=== PATIENT | female | born 1985 | race Caucasian/White ===

== ENCOUNTER → 2017-07-13 | Outpatient (CLI) | payer OTHER ==
[~2017-07-13] MED LIST: AC500T PO; ACHYD1T PO; DOCO200C2 PO; DOCU100C37 PO; FAMO20TA5 PO; FERR-74 PO; HYDR-3816 PO; IBP800T PO; IBUP-1780 PO; L.AC1CAP6 PO; OMG1KC PO; PREN-115 PO; PREN1TAB71 PO
--- NOTE | 2017-07-13 11:40 | Diagnostic Imaging Report ---
INDICATION: Gestational diabetes. TECHNIQUE: Multiple real-time grayscale images were obtained over the gravid uterus. FINDINGS: There is a single living intrauterine . The biometry correlates with a gestational age of 25 weeks 0 days. The fetus is in transverse presentation. There is a normal volume or amniotic fluid. The placenta is to the right. No evidence of previa. The anatomical survey is unremarkable. Heart rate is 140 beats per minute and regular. The spine was not optimally visualized due to lie. IMPRESSION: Single living intrauterine with sonographically estimated gestational age of 25 weeks 0 days and estimated date of confinement of 10/26/2017. Biometrical measurements are as follows: Biparietal 6.29 cm, age 25 weeks 4 days. Head circumference 22.73 cm, age 24 weeks 6 days. Abdominal circumference 19.53 cm, age 24 weeks 2 days. Femur length 4.60 cm, age 25 weeks 2 days. Sonographic estimate age: 25 weeks 0 days. Sonographic estimated date of delivery: 10-26-17. Estimated Weight: 727 gm (+/- 106 gm). LMP percentile: 61%. heart rate: 140 beats per minute. number: 1 of 1. Dictated by: Dictated on workstation # [id number]
== END ==
LOC: RAD 09:56
PROVIDERS: ATTEND Obstetrics & Gynecology
DX: O24.414 Gestational diabetes mellitus in pregnancy, insulin controlled (principal); Z3A.25 25 weeks gestation of pregnancy
CPT/HCPCS: 76805

== ENCOUNTER → 2017-10-14 | Outpatient (CLI) | payer OTHER ==
[~2017-10-14] MED LIST changes: -FERR-74 PO; +FERR325T18 PO; +HYDR-34 PO; -HYDR-3816 PO
--- NOTE | 2017-10-14 13:09 | Diagnostic Imaging Report ---
INDICATION: Gestational diabetes. FINDINGS: There is a single live fetus in a cephalic presentation. heart rate was recorded at 169 beats per minute. The amniotic fluid index is 10.3 cm. The placenta is to the right. Biophysical profile was performed. Overall score is 6/8 with 2-point deduction given for lack of breathing movements. IMPRESSION: Biophysical profile score of 6/8, as described. Dictated by: Dictated on workstation # [id number]
== END ==
LOC: RAD 11:20
PROVIDERS: ATTEND Obstetrics & Gynecology
DX: O24.424 Gestational diabetes mellitus in childbirth, insulin controlled (principal); O34.219 Maternal care for unspecified type scar from previous cesarean delivery; Z3A.00 Weeks of gestation of pregnancy not specified
CPT/HCPCS: 76819

== ENCOUNTER 2017-10-23 23:33 | Inpatient (IN) | payer OTHER ==
[~2017-10-23] VITALS: Ht 162.6 cm; Wt 89.9 kg
[2017-10-23 23:50] VITALS: BP 108/59
[2017-10-24] VITALS (10 sets, daily range): BP systolic 93–137; BP diastolic 58–82
[2017-10-24] MEDS ORDERED: LACTATED RINGERS 1,000 ML IV ONE (00:30)
[2017-10-24] MEDS ORDERED: SUFENTA 0.6MCG/ML BUPIVA 0.125 0 ML ONE (00:36)
[2017-10-24 00:56] LABS: BASOPHILS % (AUTO) 0 % (0-10); EOSINOPHILS % (AUTO) 0 % (0-10); HEMATOCRIT 35 % (35-52); HEMOGLOBIN 11.9 G/DL (11.5-16.0); LYMPHOCYTES # (AUTO) 1.2 X 10^3 (1.0-4.0); LYMPHOCYTES % (AUTO) 10 % (12-44); MEAN CORPUSCULAR HEMOGLOBIN 30 PG (25-34); MEAN CORPUSCULAR HGB CONC 34 G/DL (32-36); MEAN CORPUSCULAR VOLUME 88 FL (80-99); MEAN PLATELET VOLUME 12.1 FL (7.4-10.4); MONOCYTES # (AUTO) 1.3 X 10^3 (0.0-1.0); MONOCYTES % (AUTO) 11 % (0-12); NEUTROPHILS # (AUTO) 9.6 X 10^3 (1.8-7.8); NEUTROPHILS % (AUTO) 79 % (42-75); PLATELET COUNT 162 10^3/uL (130-400); RED BLOOD COUNT 4.01 10^6/uL (4.35-5.85); RED CELL DISTRIBUTION WIDTH 13.7 % (10.0-14.5); WHITE BLOOD COUNT 12.1 10^3/uL (4.3-11.0)
[2017-10-24] MEDS ORDERED: LIDOCAINE PF 2% 5 ML (XYLOCAINE) VIAL ONE (00:56)
[2017-10-24] MEDS ORDERED: BUPIVACAINE 0.25% 30 ML (SENSORCAINE) VIAL ONE (00:56)
[2017-10-24] MEDS ORDERED: fentaNYL INJECTION 100 MCG/2 ML AMP ONE (00:57)
[2017-10-24] MEDS ORDERED: OXYTOCIN/NORMAL SALINE 500 ML IV ONE (01:04)
[2017-10-24] MEDS ORDERED: HYDROmorphone (DILAUDID) 2 MG/ML VIAL ONE (01:07)
[2017-10-24] MEDS ORDERED: LIDOCAINE/EPI 2% 1:200,00 (XYLOCAINE) 10 ML VIAL ONE (01:07)
[2017-10-24] MEDS ORDERED: D5 LR IV SOLUTION 1,000 ML IV SCH (01:36)
[2017-10-24] MEDS ORDERED: HYDROmorphone (DILAUDID) 2 MG/ML VIAL IVP PRN (01:45)
[2017-10-24] MEDS ORDERED: OXYTOCIN/NORMAL SALINE 500 ML IV SCH (01:51)
[2017-10-24] MEDS ORDERED: BENZOCAINE/MENTHOL (DERMOPLAST) 56 ML CAN TP PRN (02:00)
[2017-10-24] MEDS ORDERED: MEASLES,MUMPS,RUBELLA 1 EA INJ SQ ONE (02:00)
[2017-10-24] MEDS ORDERED: DIBUCAINE (NUPERCAINAL) 1% OINT 30 GM TOP PRN (02:00)
[2017-10-24] MEDS ORDERED: TETANUS,DIPTH,PERTUSS P/F (BOOSTRIX) 0.5 ML VIAL IM ONE (02:00)
[2017-10-24] MEDS ORDERED: WITCH HAZEL(TUCKS) 40 EA JAR TOP PRN (02:00)
--- NOTE | 2017-10-24 02:00 | History & Physical-OB ---
OB - Chief Complaint & HPI Date/Time Date of Admission: Date of Admission: Oct 24, 2017 at 00:26 Time Seen by Provider: 12:40 Chief Complaint/History OB-Reason for Admission/Chief: Onset of Labor Hx : 3 Hx Para: 2 Expected Date of Delivery: Oct 31, 2017 Gestational Age in Weeks: 39 Gestational Age in Days: 0 Admission Nurse Assessment Rev: Yes History of Labs O pos Antibody neg RI RPR NR HBsAg NR HIV NR GC neg GBS neg Allergies and Home Medications Allergies Coded Allergies: No Known Drug Allergies (Unverified , 02/19/13) Home Medications Docusate Sodium 100 Mg Capsule, 100 MG PO BID Prescribed by: MAYA GA on 03/14/16 1257 Ferrous Sulfate 325 Mg Tablet, 325 MG PO BID WITH MEALS Prescribed by: MAYA GA on 03/14/16 1257 Hydrocodone Bit/Acetaminophen 1 Each Tablet, 0 EA PO Q4H PRN for PAIN Prescribed by: MAYA GA on 03/14/16 1257 Ibuprofen 800 Mg Tablet, 800 MG PO Q6HR Prescribed by: MAYA GA on 03/14/16 1257 L.acidoph & Paracasei,B.lactis 1 Each Capsule, 1 EACH PO DAILY, (Reported) [place] 3 Polyunsat Fatty Acids 1,000 Mg Cap, 1,000 MG PO DAILY, (Reported) Vit/Iron Fumarate/FA 1 Each Tablet, 1 EACH PO DAILY, (Reported) Patient Home Medication List Home Medication List Reviewed: Yes OB - History Hx of Present Care: Yes Ultrasounds: Normal mid trimester US Obstetrical Complications: Gestational Diabetes (GDMA2 with intermittant control) Medical Complications: None Obstetrical History Hx Termination: No Hx Multiple Gestation: No Hx Stillbirth: No Hx Complication: No Hx Induced Hypertens: No Hx Maternal Gestational Diabet: No Delivery History Hx Dystocia: No Hx Large For Gestational Age I: No Hx Small for Gestational Age I: No Hx Section: No Hx Vaginal Delivery Post C-Sec: No Hx Blood Disorders: No Adverse Rxn to Tranfusion: No Patient Past Medical History see above Social History/Family History HIV/AIDS: No Recent Infectious Disease Expo: No Sexually Transmitted Disease: No 2nd Hand Smoke Exposure: No Immunizations Hepatitis A: Yes Hepatitis B: Yes Tetanus Booster (TDap): Less than 5yrs OB - Admission Exam Physical Exam Vitals: Vital Signs 10/23/17 23:50 Temp 99.4 Pulse 73 Resp 20 B/P (MAP) 108/59 (75) HEENT: NCAT Heart: Rhythm Normal Lungs: Clear Abdomen: Gravid Extremities: Normal Reflexes: Normal Cervical Dilatation: 4cm Effacement: 100% Station: -1 Membranes: Ruptured Amniotic Fluid: Clear Heart Rate: 130's Accelerations: Accelerations Present Decelerations: No Decelerations Short Term Variability: Present Retirement Variability: Average (6-25) Contractions on Admission: < 5 Minutes Apart Intensity: Firm Labs Laboratory Tests Test 10/24/17 00:35 10/24/17 00:56 Range/Units White Blood Count 12.1 H 4.3-11.0 10^3/uL Red Blood Count 4.01 L 4.35-5.85 10^6/uL Hemoglobin 11.9 11.5-16.0 G/DL Hematocrit 35 35-52 % Mean Corpuscular Volume 88 80-99 FL Mean Corpuscular Hemoglobin 30 25-34 PG Mean Corpuscular Hemoglobin Concent 34 32-36 G/DL Red Cell Distribution Width 13.7 10.0-14.5 % Platelet Count 162 130-400 10^3/uL Mean Platelet Volume 12.1 H 7.4-10.4 FL Neutrophils (%) (Auto) 79 H 42-75 % Lymphocytes (%) (Auto) 10 L 12-44 % Monocytes (%) (Auto) 11 0-12 % Eosinophils (%) (Auto) 0 0-10 % Basophils (%) (Auto) 0 0-10 % Neutrophils # (Auto) 9.6 H 1.8-7.8 X 10^3 Lymphocytes # (Auto) 1.2 1.0-4.0 X 10^3 Monocytes # (Auto) 1.3 H 0.0-1.0 X 10^3 Eosinophils # (Auto) 0.0 0.0-0.3 10^3/uL Basophils # (Auto) 0.0 0.0-0.1 10^3/uL Glucometer 91 70-110 MG/DL OB - Assessment/Plan/Diagnosis Assessment Assessment: active labor Admission Dx 32 yo @ 39 weeks Active labor Desires GDMA2- intermittent control on insulin, and some diet control GBS neg Admission Status: Inpatient Order (span 2 midnights) Reason for Inpatient Admission: 32 yo @ 39 weeks Active labor Desires GDMA2- intermittent control on insulin, and some diet control GBS neg Plan Plan: Expectant Management MANDEEP BETH DO Oct 24, 2017 02:00
--- NOTE | 2017-10-24 02:06 | OB Labor & Delivery Record ---
L&D History Date of Service Date of Service: Oct 24, 2017 History Expected Date of Delivery: Oct 31, 2017 Gestational Age in Weeks: 39 Hx : 3 Hx Para: 2 Complications Events: Gestational Diabetes Operative Indications (Cesarea: N/A-Vaginal Delivery Intrapartal Events: Precipitous Labor < 3 hrs L&D Stage1 Stage One Onset of Labor - Date: Oct 24, 2017 Monitors and Tracing Monitor Mode: External Monitor Accelerations: Uniform Monitor Decelerations: None Station: -2 Operating Room Surgical Technician Variability: Average (6-10) Short Term Variability: Present Presentation: Vertex Vital Signs VS - Last 72 Hours, by Label 10/23/17 23:50 Temp 99.4 Pulse 73 Resp 20 B/P (MAP) 108/59 (75) Rupture of Membranes Spontaneous Ruture of Membrane: Yes Amniotic Membrane Rupture Time: 12:45 Amniotic Membrane Fluid Desc.: Clear Vaginal Bleeding Description: Normal Show L&D Stage2 Stage Two Stage II Date: Oct 24, 2017 Monitors and Tracing Monitor Mode: External Monitor Accelerations: Uniform Monitor Decelerations: None Operating Room Surgical Technician Variability: Average (6-10) Short Term Variability: Present Position: Right Occiput Anterior Presentation: Vertex Cord Descript/Complications Cord Vessel Description: 3 Vessels Complications nuchal reduced x 1 Delivery Type Infant Delivery Method: Spontaneous Vaginal Anterior Shoulder: Right Episiotomy/Perineal Laceration Laceraction(s)/Extensions: Yes Episiotomy Description: 2nd degree Degree (describe repair) right labial and 2nd degree vaginal/perineal repaired using 3-0 rapide suture Condition of Delivery 1 minute Comment: 9 5 minute Comment: 9 Notes live male infant weight 6lbs 10 oz Condition of Condition of : Living Exam: No Observed Abnormalities Resuscitation Resuscitation: N/A - Spontaneous Resp L&D Stage3 Stage Three Stage III Date: Oct 24, 2017 Pictocin Pitocin Administration Comment: 30 mu wide open at delivery of placenta Placenta Delivery Placenta Delivery: Spontaneous Delivery Summary Summary Estimated blood loss (mL): 300 300 Condition of Delivery Examined: Cervix Examined, Uterus Explored Post Hemorrhage: No Condition of Mother stable Condition of Infant (s) stable ERICKMANDEEP CALLAHAN Oct 24, 2017 02:06
--- NOTE | 2017-10-24 02:07 | Discharge Inst-Women's Service ---
Discharge Inst-Women's Serv Depart Medication/Instructions New, Converted or Re-Newed RX: RX on Chart Consults/Follow Up Additional Follow Up: Yes Orders/Referrals Dr. Beth in 6 weeks Activity Activity: Activity as Tolerated Driving Instructions: No Driving for 1 Week NO SMOKING: NO SMOKING Nothing Inside Vagina: No Douching, No [place], No Tampons Diet Discharge Diet: No Restrictions Symptoms to Report to : Bleeding Excessive, Pain Increased, Fever Over 101 Degrees F, Vaginal Bleeding Increase, Questions/Concerns For Any Problems or Questions: Contact Your Physician Skin/Wound Care Bathing Instructions: Shower (or sitz baths x 2 weeks) MANDEEP BETH DO Oct 24, 2017 02:07
[2017-10-24] MEDS ORDERED: DOCU100C37 PO (02:08)
[2017-10-24] MEDS ORDERED: ACHD5005 PO (02:08)
[2017-10-24] MEDS ORDERED: Benzocaine/Menthol TP (02:08)
[2017-10-24] MEDS ORDERED: IBUP-844 PO (02:08)
[2017-10-24] MEDS: IBUPROFEN 600 MG (MOTRIN) TAB PO SCH ×4 (03:25→20:15)
[2017-10-24] MEDS ORDERED: CATHETER FLUSH 10 ML SYR IV SCH ×2 (06:00)
[2017-10-24] MEDS ORDERED: PRENATAL VITAMIN 1 EA TAB PO SCH (07:00)
[2017-10-24] MEDS: DOCUSATE SODIUM 100 MG (COLACE) CAP PO SCH ×2 (09:00→20:15)
[2017-10-24] MEDS ORDERED: FERROUS SULF 325 MG (IRON) TAB PO SCH (09:00)
[2017-10-24] MEDS: HYDROcodone/APAP 5 MG/325 MG (LORTAB) TAB PO PRN (13:21)
[2017-10-25 00:20] VITALS: BP 89/55
[2017-10-25] MEDS: HYDROcodone/APAP 5 MG/325 MG (LORTAB) TAB PO PRN ×2 (01:42→09:31)
[2017-10-25] MEDS: IBUPROFEN 600 MG (MOTRIN) TAB PO SCH (01:45)
[2017-10-25 05:45] VITALS: BP 92/61
[2017-10-25 06:22] LABS: BASOPHILS % (AUTO) 0 % (0-10); EOSINOPHILS # (AUTO) 0.1 10^3/uL (0.0-0.3); EOSINOPHILS % (AUTO) 1 % (0-10); HEMATOCRIT 27 % (35-52); HEMOGLOBIN 8.6 G/DL (11.5-16.0); LYMPHOCYTES # (AUTO) 2.1 X 10^3 (1.0-4.0); LYMPHOCYTES % (AUTO) 30 % (12-44); MEAN CORPUSCULAR HGB CONC 33 G/DL (32-36); MEAN CORPUSCULAR VOLUME 91 FL (80-99); MEAN PLATELET VOLUME 11.9 FL (7.4-10.4); MONOCYTES # (AUTO) 0.7 X 10^3 (0.0-1.0); MONOCYTES % (AUTO) 11 % (0-12); NEUTROPHILS # (AUTO) 4.1 X 10^3 (1.8-7.8); NEUTROPHILS % (AUTO) 58 % (42-75); PLATELET COUNT 137 10^3/uL (130-400); RED BLOOD COUNT 2.92 10^6/uL (4.35-5.85)
[2017-10-25 06:28] LABS: MEAN CORPUSCULAR HEMOGLOBIN 29 PG (25-34)
[2017-10-25] MEDS ORDERED: FERR325T18 PO (08:37)
--- NOTE | 2017-10-25 08:39 | Postpartum Progress Note ---
Note Note Day # 1 Subjective: Patient is without complaints. Ambulating, voiding. Tolerating a regular diet without nausea or vomiting. Normal lochia. Pain is well controlled with oral pain medications. . Objective: Vital Sign - Last 24 Hours 10/24/17 10/24/17 10/24/17 10/25/17 12:30 17:00 20:15 00:20 Temp 98.9 98.4 99.8 98.3 Pulse 92 92 96 92 Resp 18 18 18 18 B/P (MAP) 101/67 (78) 93/59 (70) 96/58 (71) 89/55 (66) Pulse Ox 98 98 98 98 O2 Delivery Room Air Room Air Room Air Room Air 10/25/17 05:45 Temp 98.7 Pulse 76 Resp 18 B/P (MAP) 92/61 (71) Pulse Ox 98 O2 Delivery Room Air Physical Exam: General - Alert and oriented, no apparent distress Abdomen - Soft, appropriately tender to palpation, non-distended, fundus firm at umbilicus Extremities - no edema, negative Ana's bilaterally Assessment: PPD 1 NVD Precip Delivery Successful Acute blood loss anemia GDMA2 Plan: Routine care. Encourage breast feeding. Encourage ambulation. Ferrous sulfate supplementation. Plan for discharge today Vitals - Labs Vital Signs - I&O Vital Signs Date Time Temp Pulse Resp B/P (MAP) Pulse Ox O2 Delivery O2 Flow Rate FiO2 10/25/17 05:45 98.7 76 18 92/61 (71) 98 Room Air 10/25/17 00:20 98.3 92 18 89/55 (66) 98 Room Air 10/24/17 20:15 99.8 96 18 96/58 (71) 98 Room Air 10/24/17 17:00 98.4 92 18 93/59 (70) 98 Room Air 10/24/17 12:30 98.9 92 18 101/67 (78) 98 Room Air Labs Laboratory Tests 10/25/17 05:43: White Blood Count 7.0, Red Blood Count 2.92L, Hemoglobin 8.6#L, Hematocrit 27L, Mean Corpuscular Volume 91, Mean Corpuscular Hemoglobin 29, Mean Corpuscular Hemoglobin Concent 33, Red Cell Distribution Width 14.0, Platelet Count 137, Mean Platelet Volume 11.9H, Neutrophils (%) (Auto) 58, Lymphocytes (%) (Auto) 30 , Monocytes (%) (Auto) 11, Eosinophils (%) (Auto) 1, Basophils (%) (Auto) 0, Neutrophils # (Auto) 4.1, Lymphocytes # (Auto) 2.1, Monocytes # (Auto) 0.7, Eosinophils # (Auto) 0.1, Basophils # (Auto) 0.0 MANDEEP BETH DO Oct 25, 2017 8:39 am
[2017-10-25 09:30] VITALS: BP 105/70
[2017-10-25] MEDS ORDERED: FERROUS SULF 325 MG (IRON) TAB PO SCH (17:00)
== END 2017-10-25 13:50 | disposition home or self-care (01) | DRG 775 ==
LOC: WSo 23:33 → LDRP 23:33 → WSo 10-24 00:25 → LDRP 10-24 00:26
PROVIDERS: ADMIT Obstetrics & Gynecology; ATTEND Obstetrics & Gynecology
PROC: 0KQM0ZZ Repair Perineum Muscle, Open Approach (ICD-10-PCS; principal; 2017-10-24)
PROC: 10E0XZZ Delivery of Products of Conception, External Approach (ICD-10-PCS; 2017-10-24)
DX: O24.424 Gestational diabetes mellitus in childbirth, insulin controlled (principal); O62.3 Precipitate labor; O70.1 Second degree perineal laceration during delivery; O90.81 Anemia of the puerperium; D62 Acute posthemorrhagic anemia; Z3A.39 39 weeks gestation of pregnancy; Z37.0 Single live birth; Z79.4 Long term (current) use of insulin
CPT/HCPCS: 36415; 82962; 85025; 86850; 86900; 86901; 99212